=== PATIENT | male | born 1960 | race Caucasian/White ===

== ENCOUNTER → 2023-02-14 10:41 | Outpatient (BNVA) | payer OTHER, SELFPAY | PROVIDERS: Family Provider Family Medicine; PCP Family Medicine; Visit Provider Family Medicine | DX: R05.9 Cough, unspecified (principal); J40 Bronchitis, not specified as acute or chronic | CPT/HCPCS: 87426 ==

== ENCOUNTER → 2023-09-15 09:15 | Outpatient (BNVA) | payer OTHER, SELFPAY | PROVIDERS: Family Provider Family Medicine; PCP Family Medicine; Visit Provider Family Medicine | DX: Z76.89 Persons encountering health services in other specified circumstances (principal); Z11.4 Encounter for screening for human immunodeficiency virus [HIV]; Z13.220 Encounter for screening for lipoid disorders; Z13.6 Encounter for screening for cardiovascular disorders; Z11.59 Encounter for screening for other viral diseases; B36.9 Superficial mycosis, unspecified; H60.90 Unspecified otitis externa, unspecified ear; H62.40 Otitis externa in other diseases classified elsewhere, unspecified ear; E55.9 Vitamin D deficiency, unspecified; H61.23 Impacted cerumen, bilateral | CPT/HCPCS: 80053; 80061; 82306; 84443; 85025; 86803; 87806; G0103 ==

== ENCOUNTER 2024-08-23 11:35 | Observation (INO) | payer OTHER, SELFPAY ==
[2024-08-23] VITALS (8 sets, daily range): BP systolic 113–138; BP diastolic 70–107; PULSE 72–146; RESP 16–18; TEMP 36.4–37.1; O2SAT 92–99; BMI 27.1; BMI 26.9
--- NOTE | 2024-08-23 11:50 | ECG_ITS ---
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 Measurements Intervals [place] Rate: 151 P: 0 UT: 0 QRS: 66 QRSD: 74 T: 27 QT: 247 QTc: 392 Interpretive Statements ATRIAL FLUTTER/TACHYCARDIA WITH RAPID VENTRICULAR RESPONSE MODERATE ST DEPRESSION [0.05+ mV ST DEPRESSION] CRITICAL TEST RESULT INTERPRETATION BASED ON A DEFAULT AGE OF 40 YEARS No previous ECG available for comparison Electronically Signed On 08-25-2024 14:12:49 CDT by Cliff Cheng M.D. [email or web address]
--- NOTE | 2024-08-23 11:50 | XR_ITS ---
WS: [id number] XR chest 1V portable [id number] REASON FOR EXAM: palpitations FINDINGS: Mild tortuosity of the thoracic aorta. Normal heart size. Calcified granulomatous disease in both hemithoraces. No acute pulmonary parenchymal or pleural abnormality. Mild degenerative spondylosis in the mid and lower thoracic spine. XR/XR chest 1V portable [id number] IMPRESSION: No acute chest abnormality.
--- OUTSIDE RECORDS SUMMARY | 2024-08-23 11:55 | XMS_ITS | Encounter Summary ---
Author Organization [facility] Address 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 Name Role Phone Unavailable Primary Care Provider Unavailabl e Reason for Visit * Reason Onset Date Comments Needs Appointment 04/30/2024 Encounter Details Date Type Department Care Team (Late st Contact Info) Description 04/30/2024 Telephone [facility] [address] [facility] [address] [place] [address] Provider, Abstract NO ADDRESS ON FILE Needs Appointment Social History Tobacco Use Types Packs/Day Years Used Date Smoking Tobacco: Former Cigarettes Q uit: 08/14/1994 Smokeless Tobacco: Former Quit: 08/14/1994 Alcohol Use Standard Drinks/Week Comments No 0 (1 standard drink = 0.6 oz pur e alcohol) Sex and Gender Information Value Date Recorded Sex Assigned at Not on file 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 Paola Villegas [facility] Card[facility] documented in this encounter Plan of Treatment Upcoming Encounters Date Type Department Care Team (Late st Contact Info) Description 09/07/2024 9:30 AM CDT Appointment [facility] [address] [place] [address] Raghavendra Santiago MD [address] [facility] [address] [place] [address] documented as of this encounter Visit Diagnoses Not on filedocumented in this encounter
--- OUTSIDE RECORDS SUMMARY | 2024-08-23 11:55 | XMS_ITS | Clinical Summary ---
Author Organization [facility] Attn: Epic Prelude ADT KEV POWER [id number] Care Team Providers Care Striper Name Role Phone Unavailable Primary Care Provider Unavailabl e Allergies No known active allergies Medications cetirizine (ZyrTEC) 10 mg tablet Take 10 mg by mouth daily. Active ibuprofen (MOTRIN) 200 mg tablet Take 200 mg by mouth every 6 hours as needed for Pain, Mild. Active Active Problems No known active problems Encounters Date Type Department Care Team Description 07/04/2024 Results Follow-Up [address] [place] [phone] Raghavendra Santiago MD PET HEART PERF R&S W CT MULTI 07/03/2024 8:40 AM CDT - 07/03/2024 11:59 PM CDT Hospital Encounter [facility] Nuclear Medicine [address] [place] [phone] Raghavendra Santiago MD Discharge Disposition: Home or Self Care 07/03/2024 8:35 AM CDT - 07/03/2024 11:59 PM CDT Hospital Encounter [facility] Nuclear Medicine [address] [place] [phone] Raghavendra Santiago MD Discharge Disposition: Home or Self Care 07/03/2024 8:00 AM CDT - 07/03/2024 11:59 PM CDT Hospital Encounter [facility] Nuclear Medicine [address] [place] [phone] Raghavendra Santiago MD Discharge Disposition: Home or Self Care 07/03/2024 7:59 AM CDT - 07/03/2024 11:59 PM CDT Hospital Encounter [address] [phone] Raghavendra Santiago MD Discharge Disposition: Home or Self Care 06/28/[address] [phone] Hamida Garcia RN Pet scan instructions 05/31/2024 1:15 PM CDT Office Visit [address] [place] [phone] Raghavendra Santiago MD Chest pain, unspecified type (Primary Dx); Non-sustained ventricular tachycardia (CMS/HCC); Supraventricular tachycardia 05/31/2024 Orders Only [address] [place] [phone] Raghavendra Santiago MD Chest pain, unspecified type (Primary Dx); Non-sustained ventricular tachycardia (CMS/HCC); Supraventricular tachycardia from Last 3 Months Immunizations Immunization Administration Dates Next Due Hepatitis A Vaccine 04/22/2005,11/07/2004,2004 Hepatitis B Vaccine 04/22/2005 Family History Medical History Relation Name Comments Heart Disease Father Colon Cancer Maternal Grandfather Healthy Mother Relation Name Status Comments Father Alive Maternal Grandfather Mother Alive Social History Tobacco Use Types Packs/Day Years Used Date Smoking Tobacco: Former Cigarettes Q uit: 08/14/1994 Smokeless Tobacco: Former Quit: 08/14/1994 Tobacco Cessation:Counseling Given: Not Answered Alcohol Use Standard Drinks/Week Comments No 0 (1 standard drink = 0.6 oz pur e alcohol) Sex and Gender Information Value Date Recorded Sex Assigned at Not on file Legal Sex Male 11:54 AM [employer] Gender Identity Not on file Sexual Orientation Not on file Last Filed Vital Signs Vital Sign Reading Time Taken Comments Blood Pressure 118/76 05/31/2024 1:09 PM CDT Pulse 105 05/31/2024 1:09 PM CDT Temperature - - Respiratory Rate - - Oxygen Saturation - - Inhaled Oxygen Concentration - - Weight - - Height 182.9 cm (6') 05/31/2024 1:09 PM CDT Body Mass Index - - Plan of Treatment Upcoming Encounters Date Type Department Care Team (Late st Contact Info) Description 09/07/2024 9:30 AM CDT Appointment [facility] Echo [address] [place] [phone] Raghavendra Santiago MD [address] [place] [phone] Health Maintenance Due Date Last Done Comments DTAP/TDAP/TD VACCINES (1 - Tdap) 01/29/1979 FIT-DNA Q 3 years 01/29/2005 FIT/FOBT Q 1 year 01/29/2005 Flex Sig/CT Colonography Q 5 years 01/29/2005 ZOSTER VACCINE (1 of 2) 01/29/2010 COLORECTAL SCREENING 08/17/2018 08/17/2013, 08/18/19 14 Colorectal Cancer Screening 08/17/2018 Preventative Visit- Commercial 02/08/2024 INFLUENZA VACCINE (#1) 2024 RSV VACCINE (60+ or ) (1 - 1-dose 75+ series) 01/29/2035 Procedures Procedure Name Priority Date/Time Associated Diagnosis Comments PET HEART PERF R&S W CT MULTI Routine 07/03/2024 9:17 AM CDT Chest pain, unspecified type Non-sustained ventricular tachycardia (CMS/HCC) Supraventricular tachycardia NM PHARMACOLOGICAL STRESS TEST Routine 07/03/2024 9:04 AM CDT Chest pain CT CORONARY CALCIUM SCORE Routine 07/03/2024 8:49 AM CDT Chest pain in adult CT CARDIAC CHEST INTERPRETATION Routine 07/03/2024 8:49 AM CDT Chest pain in adult from Last 3 Months Results * PET HEART PERF R&S W CT MULTI (07/03/2024 9:17 AM CDT) 07/03/2024 9:38 AM CDT Impressions INTERFACE SYSTEM - 07/03/2024 2:42 PM CDT Impression: 1. Normal myocardial perfusion at rest and stress, without evidence of ischemia or injury. 2. Normal myocardial blood flow reserve (MBFR) at 2.46. 3. Normal left ventricular systolic function, LVEF at rest is 68%, rising to 74% at peak stress. 4. Coronary artery calcium scan shows coronary calcium score of 137. 5. No prior study available for direct comparison. Luca Solis MD Narrative INTERFACE SYSTEM - 07/03/2024 2:42 PM CDT REST-STRESS REGADENOSON RUBIDIUM-92 PET/CT MYOCARDIAL PERFUSION IMAGING Clinical Indication and History: Chest pain. 64-year-old male patient with history of palpitations, history of tobacco use and family history of CAD. Procedure: A CT scan was required for attenuation correction of the rest images. This was followed by infusion of 30 mCi of rubidium Rb-82, after which rest images were acquired. Following rest imaging, a total of 0.4 mg was injected intravenously over 10 seconds followed by a 5 ml normal saline flush. At 1 minute, 30 mCi of rubidium Rb-92 was infused. Peak stress images acquired, starting 30 seconds after the beginning of the infusion of Rb-92. A CT scan was acquired for attention correction of the stress images. A coronary calcium score is acquired with 3 mm thick slices using a 3 mm slice of slice step. Calcium score protocol (performed if no prior CAD or calcium score): high resolution, ECG synchronized completed tomography of the heart and corner artist was performed using a multi detector computer tomography MDCT scanner. Clinical response: The heart rate at rest was 70 beats per minute. After the regadenoson injection, the heart rate was 111 beats per minute. The blood pressure at baseline was 132/87 mm Hg. At the end of regadenoson injection, it was 117/68 mm Hg. The patient experienced the following symptoms during the test: Shortness of breath, headache and flushing. Electrocardiograph findings: The resting 12-lead electrocardiogram showed normal sinus rhythm, without ST-segment changes . Following regadenoson stress, no significant ST-T changes were noted. There was evidence of no significant new arrhythmias. Scintigraphic findings: The tomographic images show homogeneous tracer distribution and myocardial perfusion except mild attenuation in the inferior and inferoseptal myocardium more prominent in the resting images. There is also attenuation in the apical myocardium. The left ventricle does not dilate with stress. The gated tomograms show normal wall motion and thickening in all areas. The LVEF at rest is 68%, rising to 74% at peak stress. Myocardial blood flow reserve: Myocardial blood flow reserve is normal at 2.46. Myocardial blood flow reserve is 2.6 in the LAD territory and 2.2 in the circumflex territory and 2.4 in the RCA territory Coronary artery calcium score: The total Agatston score is 137. Calcification is noted in the LAD and the RCA In summary, the clinical, electrocardiographic and scintigraphic findings in this patient being evaluated for ischemia using regadenoson are as follows: Clinical response: Non-diagnostic (Regadenoson). Electrocardiographic response: Non-ischemic Scintigraphic response: Non-ischemic Procedure Note Luca Solis MD - 07/03/2024 REST-STRESS REGADENOSON RUBIDIUM-92 PET/CT MYOCARDIAL PERFUSION IMAGING Clinical Indication and History: Chest pain. 64-year-old male patient with history of palpitations, history of tobacco use and family history of CAD. Procedure: A CT scan was required for attenuation correction of the rest images. This was followed by infusion of 30 mCi of rubidium Rb-82, after which rest images were acquired. Following rest imaging, a total of 0.4 mg was injected intravenously over 10 seconds followed by a 5 ml normal saline flush. At 1 minute, 30 mCi of rubidium Rb-92 was infused. Peak stress images acquired, starting 30 seconds after the beginning of the infusion of Rb-92. A CT scan was acquired for attention correction of the stress images. A coronary calcium score is acquired with 3 mm thick slices using a 3 mm slice of slice step. Calcium score protocol (performed if no prior CAD or calcium score): high resolution, ECG synchronized completed tomography of the heart and corner artist was performed using a multi detector computer tomography MDCT scanner. Clinical response: The heart rate at rest was 70 beats per minute. After the regadenoson injection, the heart rate was 111 beats per minute. The blood pressure at baseline was 132/87 mm Hg. At the end of regadenoson injection, it was 117/68 mm Hg. The patient experienced the following symptoms during the test: Shortness of breath, headache and flushing. Electrocardiograph findings: The resting 12-lead electrocardiogram showed normal sinus rhythm, without ST-segment changes . Following regadenoson stress, no significant ST-T changes were noted. There was evidence of no significant new arrhythmias. Scintigraphic findings: The tomographic images show homogeneous tracer distribution and myocardial perfusion except mild attenuation in the inferior and inferoseptal myocardium more prominent in the resting images. There is also attenuation in the apical myocardium. The left ventricle does not dilate with stress. The gated tomograms show normal wall motion and thickening in all areas. The LVEF at rest is 68%, rising to 74% at peak stress. Myocardial blood flow reserve: Myocardial blood flow reserve is normal at 2.46. Myocardial blood flow reserve is 2.6 in the LAD territory and 2.2 in the circumflex territory and 2.4 in the RCA territory Coronary artery calcium score: The total Agatston score is 137. Calcification is noted in the LAD and the RCA In summary, the clinical, electrocardiographic and scintigraphic findings in this patient being evaluated for ischemia using regadenoson are as follows: Clinical response: Non-diagnostic (Regadenoson). Electrocardiographic response: Non-ischemic Scintigraphic response: Non-ischemic Impression: 1. Normal myocardial perfusion at rest and stress, without evidence of ischemia or injury. 2. Normal myocardial blood flow reserve (MBFR) at 2.46. 3. Normal left ventricular systolic function, LVEF at rest is 68%, rising to 74% at peak stress. 4. Coronary artery calcium scan shows coronary calcium score of 137. 5. No prior study available for direct comparison. Luca Solis MD Raghavendra Santiago MD PE ORDERABLES Final Result INTERFACE SYSTEM Refer to clinic/hospital department * NM PHARMACOLOGICAL STRESS TEST (07/03/2024 9:04 AM CDT) 07/03/2024 9:05 AM CDT Impressions INTERFACE SYSTEM - 07/03/2024 2:42 PM CDT Impression: 1. Normal myocardial perfusion at rest and stress, without evidence of ischemia or injury. 2. Normal myocardial blood flow reserve (MBFR) at 2.46. 3. Normal left ventricular systolic function, LVEF at rest is 68%, rising to 74% at peak stress. 4. Coronary artery calcium scan shows coronary calcium score of 137. 5. No prior study available for direct comparison. Luca Solis MD Narrative INTERFACE SYSTEM - 07/03/2024 2:42 PM CDT REST-STRESS REGADENOSON RUBIDIUM-92 PET/CT MYOCARDIAL PERFUSION IMAGING Clinical Indication and History: Chest pain. 64-year-old male patient with history of palpitations, history of tobacco use and family history of CAD. Procedure: A CT scan was required for attenuation correction of the rest images. This was followed by infusion of 30 mCi of rubidium Rb-82, after which rest images were acquired. Following rest imaging, a total of 0.4 mg was injected intravenously over 10 seconds followed by a 5 ml normal saline flush. At 1 minute, 30 mCi of rubidium Rb-92 was infused. Peak stress images acquired, starting 30 seconds after the beginning of the infusion of Rb-92. A CT scan was acquired for attention correction of the stress images. A coronary calcium score is acquired with 3 mm thick slices using a 3 mm slice of slice step. Calcium score protocol (performed if no prior CAD or calcium score): high resolution, ECG synchronized completed tomography of the heart and corner artist was performed using a multi detector computer tomography MDCT scanner. Clinical response: The heart rate at rest was 70 beats per minute. After the regadenoson injection, the heart rate was 111 beats per minute. The blood pressure at baseline was 132/87 mm Hg. At the end of regadenoson injection, it was 117/68 mm Hg. The patient experienced the following symptoms during the test: Shortness of breath, headache and flushing. Electrocardiograph findings: The resting 12-lead electrocardiogram showed normal sinus rhythm, without ST-segment changes . Following regadenoson stress, no significant ST-T changes were noted. There was evidence of no significant new arrhythmias. Scintigraphic findings: The tomographic images show homogeneous tracer distribution and myocardial perfusion except mild attenuation in the inferior and inferoseptal myocardium more prominent in the resting images. There is also attenuation in the apical myocardium. The left ventricle does not dilate with stress. The gated tomograms show normal wall motion and thickening in all areas. The LVEF at rest is 68%, rising to 74% at peak stress. Myocardial blood flow reserve: Myocardial blood flow reserve is normal at 2.46. Myocardial blood flow reserve is 2.6 in the LAD territory and 2.2 in the circumflex territory and 2.4 in the RCA territory Coronary artery calcium score: The total Agatston score is 137. Calcification is noted in the LAD and the RCA In summary, the clinical, electrocardiographic and scintigraphic findings in this patient being evaluated for ischemia using regadenoson are as follows: Clinical response: Non-diagnostic (Regadenoson). Electrocardiographic response: Non-ischemic Scintigraphic response: Non-ischemic Procedure Note Luca Solis MD - 07/03/2024 REST-STRESS REGADENOSON RUBIDIUM-92 PET/CT MYOCARDIAL PERFUSION IMAGING Clinical Indication and History: Chest pain. 64-year-old male patient with history of palpitations, history of tobacco use and family history of CAD. Procedure: A CT scan was required for attenuation correction of the rest images. This was followed by infusion of 30 mCi of rubidium Rb-82, after which rest images were acquired. Following rest imaging, a total of 0.4 mg was injected intravenously over 10 seconds followed by a 5 ml normal saline flush. At 1 minute, 30 mCi of rubidium Rb-92 was infused. Peak stress images acquired, starting 30 seconds after the beginning of the infusion of Rb-92. A CT scan was acquired for attention correction of the stress images. A coronary calcium score is acquired with 3 mm thick slices using a 3 mm slice of slice step. Calcium score protocol (performed if no prior CAD or calcium score): high resolution, ECG synchronized completed tomography of the heart and corner artist was performed using a multi detector computer tomography MDCT scanner. Clinical response: The heart rate at rest was 70 beats per minute. After the regadenoson injection, the heart rate was 111 beats per minute. The blood pressure at baseline was 132/87 mm Hg. At the end of regadenoson injection, it was 117/68 mm Hg. The patient experienced the following symptoms during the test: Shortness of breath, headache and flushing. Electrocardiograph findings: The resting 12-lead electrocardiogram showed normal sinus rhythm, without ST-segment changes . Following regadenoson stress, no significant ST-T changes were noted. There was evidence of no significant new arrhythmias. Scintigraphic findings: The tomographic images show homogeneous tracer distribution and myocardial perfusion except mild attenuation in the inferior and inferoseptal myocardium more prominent in the resting images. There is also attenuation in the apical myocardium. The left ventricle does not dilate with stress. The gated tomograms show normal wall motion and thickening in all areas. The LVEF at rest is 68%, rising to 74% at peak stress. Myocardial blood flow reserve: Myocardial blood flow reserve is normal at 2.46. Myocardial blood flow reserve is 2.6 in the LAD territory and 2.2 in the circumflex territory and 2.4 in the RCA territory Coronary artery calcium score: The total Agatston score is 137. Calcification is noted in the LAD and the RCA In summary, the clinical, electrocardiographic and scintigraphic findings in this patient being evaluated for ischemia using regadenoson are as follows: Clinical response: Non-diagnostic (Regadenoson). Electrocardiographic response: Non-ischemic Scintigraphic response: Non-ischemic Impression: 1. Normal myocardial perfusion at rest and stress, without evidence of ischemia or injury. 2. Normal myocardial blood flow reserve (MBFR) at 2.46. 3. Normal left ventricular systolic function, LVEF at rest is 68%, rising to 74% at peak stress. 4. Coronary artery calcium scan shows coronary calcium score of 137. 5. No prior study available for direct comparison. Luca Solis MD Raghavendra Santiago MD ID ORDERABLES Final Result INTERFACE SYSTEM Refer to clinic/hospital department * CT CORONARY CALCIUM SCORE (07/03/2024 8:49 AM CDT) 07/03/2024 8:49 AM CDT Impressions INTERFACE SYSTEM - 07/03/2024 2:42 PM CDT Impression: 1. Normal myocardial perfusion at rest and stress, without evidence of ischemia or injury. 2. Normal myocardial blood flow reserve (MBFR) at 2.46. 3. Normal left ventricular systolic function, LVEF at rest is 68%, rising to 74% at peak stress. 4. Coronary artery calcium scan shows coronary calcium score of 137. 5. No prior study available for direct comparison. Luca Solis MD Narrative INTERFACE SYSTEM - 07/03/2024 2:42 PM CDT REST-STRESS REGADENOSON RUBIDIUM-92 PET/CT MYOCARDIAL PERFUSION IMAGING Clinical Indication and History: Chest pain. 64-year-old male patient with history of palpitations, history of tobacco use and family history of CAD. Procedure: A CT scan was required for attenuation correction of the rest images. This was followed by infusion of 30 mCi of rubidium Rb-82, after which rest images were acquired. Following rest imaging, a total of 0.4 mg was injected intravenously over 10 seconds followed by a 5 ml normal saline flush. At 1 minute, 30 mCi of rubidium Rb-92 was infused. Peak stress images acquired, starting 30 seconds after the beginning of the infusion of Rb-92. A CT scan was acquired for attention correction of the stress images. A coronary calcium score is acquired with 3 mm thick slices using a 3 mm slice of slice step. Calcium score protocol (performed if no prior CAD or calcium score): high resolution, ECG synchronized completed tomography of the heart and corner artist was performed using a multi detector computer tomography MDCT scanner. Clinical response: The heart rate at rest was 70 beats per minute. After the regadenoson injection, the heart rate was 111 beats per minute. The blood pressure at baseline was 132/87 mm Hg. At the end of regadenoson injection, it was 117/68 mm Hg. The patient experienced the following symptoms during the test: Shortness of breath, headache and flushing. Electrocardiograph findings: The resting 12-lead electrocardiogram showed normal sinus rhythm, without ST-segment changes . Following regadenoson stress, no significant ST-T changes were noted. There was evidence of no significant new arrhythmias. Scintigraphic findings: The tomographic images show homogeneous tracer distribution and myocardial perfusion except mild attenuation in the inferior and inferoseptal myocardium more prominent in the resting images. There is also attenuation in the apical myocardium. The left ventricle does not dilate with stress. The gated tomograms show normal wall motion and thickening in all areas. The LVEF at rest is 68%, rising to 74% at peak stress. Myocardial blood flow reserve: Myocardial blood flow reserve is normal at 2.46. Myocardial blood flow reserve is 2.6 in the LAD territory and 2.2 in the circumflex territory and 2.4 in the RCA territory Coronary artery calcium score: The total Agatston score is 137. Calcification is noted in the LAD and the RCA In summary, the clinical, electrocardiographic and scintigraphic findings in this patient being evaluated for ischemia using regadenoson are as follows: Clinical response: Non-diagnostic (Regadenoson). Electrocardiographic response: Non-ischemic Scintigraphic response: Non-ischemic Procedure Note Luca Solis MD - 07/03/2024 REST-STRESS REGADENOSON RUBIDIUM-92 PET/CT MYOCARDIAL PERFUSION IMAGING Clinical Indication and History: Chest pain. 64-year-old male patient with history of palpitations, history of tobacco use and family history of CAD. Procedure: A CT scan was required for attenuation correction of the rest images. This was followed by infusion of 30 mCi of rubidium Rb-82, after which rest images were acquired. Following rest imaging, a total of 0.4 mg was injected intravenously over 10 seconds followed by a 5 ml normal saline flush. At 1 minute, 30 mCi of rubidium Rb-92 was infused. Peak stress images acquired, starting 30 seconds after the beginning of the infusion of Rb-92. A CT scan was acquired for attention correction of the stress images. A coronary calcium score is acquired with 3 mm thick slices using a 3 mm slice of slice step. Calcium score protocol (performed if no prior CAD or calcium score): high resolution, ECG synchronized completed tomography of the heart and corner artist was performed using a multi detector computer tomography MDCT scanner. Clinical response: The heart rate at rest was 70 beats per minute. After the regadenoson injection, the heart rate was 111 beats per minute. The blood pressure at baseline was 132/87 mm Hg. At the end of regadenoson injection, it was 117/68 mm Hg. The patient experienced the following symptoms during the test: Shortness of breath, headache and flushing. Electrocardiograph findings: The resting 12-lead electrocardiogram showed normal sinus rhythm, without ST-segment changes . Following regadenoson stress, no significant ST-T changes were noted. There was evidence of no significant new arrhythmias. Scintigraphic findings: The tomographic images show homogeneous tracer distribution and myocardial perfusion except mild attenuation in the inferior and inferoseptal myocardium more prominent in the resting images. There is also attenuation in the apical myocardium. The left ventricle does not dilate with stress. The gated tomograms show normal wall motion and thickening in all areas. The LVEF at rest is 68%, rising to 74% at peak stress. Myocardial blood flow reserve: Myocardial blood flow reserve is normal at 2.46. Myocardial blood flow reserve is 2.6 in the LAD territory and 2.2 in the circumflex territory and 2.4 in the RCA territory Coronary artery calcium score: The total Agatston score is 137. Calcification is noted in the LAD and the RCA In summary, the clinical, electrocardiographic and scintigraphic findings in this patient being evaluated for ischemia using regadenoson are as follows: Clinical response: Non-diagnostic (Regadenoson). Electrocardiographic response: Non-ischemic Scintigraphic response: Non-ischemic Impression: 1. Normal myocardial perfusion at rest and stress, without evidence of ischemia or injury. 2. Normal myocardial blood flow reserve (MBFR) at 2.46. 3. Normal left ventricular systolic function, LVEF at rest is 68%, rising to 74% at peak stress. 4. Coronary artery calcium scan shows coronary calcium score of 137. 5. No prior study available for direct comparison. Luca Solis MD Raghavendra Santiago MD CT ORDERABLES Final Result Performing Organization Address City/State/[facility] Co de Phone Number INTERFACE SYSTEM Refer to clinic/hospital department * CT CARDIAC CHEST INTERPRETATION (07/03/2024 8:49 AM CDT) Anatomical Region Laterality Modality Chest Nuclear Medicine 07/03/2024 8:4 9 AM CDT Impressions 07/03/2024 9:06 AM CDT IMPRESSION: No significant extracardiac findings. Narrative 07/03/2024 9:[address] CARDIAC CHEST INTERPRETATION; 07/03/2024 8:49 AM Reason For Exam: See Diagnosis. Diagnosis: Chest pain in adult. COMPARISON: None. This report serves as an over read of the extracardiac/extravascular structures in the visualized portions of the chest. Please refer to the concurrent cardiology report for assessment of the cardiac structures and great vessels of the chest. FINDINGS: LUNGS: The visualized portions of the lungs appear grossly clear with no dominant nodules or acute airspace consolidation. PLEURA: No pneumothorax or pleural effusion. MEDIASTINUM: No pathologically enlarged mediastinal lymph nodes. GREAT VESSELS: Reported by cardiology, as above. HEART: Reported by cardiology, as above. OSSEOUS STRUCTURES: The visualized skeletal structures are intact. UPPER ABDOMEN: No acute abnormalities. Procedure Note Chai Berry MD - 07/03/2024 CT CARDIAC CHEST INTERPRETATION; 07/03/2024 8:49 AM Reason For Exam: See Diagnosis. Diagnosis: Chest pain in adult. COMPARISON: None. This report serves as an over read of the extracardiac/extravascular structures in the visualized portions of the chest. Please refer to the concurrent cardiology report for assessment of the cardiac structures and great vessels of the chest. FINDINGS: LUNGS: The visualized portions of the lungs appear grossly clear with no dominant nodules or acute airspace consolidation. PLEURA: No pneumothorax or pleural effusion. MEDIASTINUM: No pathologically enlarged mediastinal lymph nodes. GREAT VESSELS: Reported by cardiology, as above. HEART: Reported by cardiology, as above. OSSEOUS STRUCTURES: The visualized skeletal structures are intact. UPPER ABDOMEN: No acute abnormalities. IMPRESSION: No significant extracardiac findings. Raghavendra Santiago MD CT ORDERABLES Final Result from Last 3 Months Insurance [facility] [id number]
--- OUTSIDE RECORDS SUMMARY | 2024-08-23 11:55 | XMS_ITS | Encounter Summary ---
Author Organization [facility] Address [address] [place] [address] Care Team Providers Care Test Bore Helper Name Role Phone Unavailable Primary Care Provider Unavailabl e Reason for Visit * Reason Onset Date Comments Results 07/04/2024 Encounter Details Date Type Department Care Team (Late st Contact Info) Description 07/04/2024 Results Follow-Up [facility] [address] [facility] [address] [place] [id number] Raghavendra Santiago MD [address] [facility] [address] [place] [id number] PET HEART PERF R&S W CT MULTI Social History Tobacco Use Types Packs/Day Years Used Date Smoking Tobacco: Former Cigarettes Q uit: 08/14/1994 Smokeless Tobacco: Former Quit: 08/14/1994 Alcohol Use Standard Drinks/Week Comments No 0 (1 standard drink = 0.6 oz pur e alcohol) Sex and Gender Information Value Date Recorded Sex Assigned at Not on file 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 Advised could call back tomorrow am. * Telephone Encounter - Shazia Pickett RN - 07/05/2024 4:06 PM CDT ----- Message from Fawn Cheng sent at 07/05/2024 11:54 AM CDT ----- Can you call Faustina to discuss Dakotah's v-tach and future episodes? She's pretty worried about it. * Telephone Encounter - Fawn Cheng - 07/05/2024 11:52 AM CDT I talked to the pt's about the results. I told her to call and get the echo scheduled. She said she is still concerned about his V-tach. I told her I will send a message to the nurse to discuss this further. MARIAH SPRINGER * Telephone Encounter - Fawn Cheng - 07/05/2024 11:46 AM CDT ----- Message from Nurse Shazia Pickett sent at 07/04/2024 3:10 PM CDT ----- Please call and notify the patient Shazia ----- Message ----- From: Raghavendra Santiago MD Sent: 07/04/2024 6:53 AM CDT To: Shazia Pickett RN Cardiac nuclear PET/CT is normal No ischemia. Normal myocardial blood flow reserve Normal LV function, EF 68% Calcium score is 137 This scan shows no evidence of significant underlying CAD, no prior TN or heart damage. Await echo results. * Result Encounter Note - Raghavendra Santiago MD - 07/04/2024 6:53 AM CDT Cardiac nuclear PET/CT is normal No ischemia. Normal myocardial blood flow reserve Normal LV function, EF 68% Calcium score is 137 This scan shows no evidence of significant underlying CAD, no prior TN or heart damage. Await echo results. documented in this encounter Plan of Treatment Upcoming Encounters Date Type Department Care Team (Late st Contact Info) Description 09/07/2024 9:30 AM CDT Appointment [facility] Echo [address] [place] [address] Raghavendra Santiago MD [address] [facility] [address] [place] [address] documented as of this encounter Visit Diagnoses Not on filedocumented in this encounter
[2024-08-23 12:10] LABS: Hematocrit 49.7 % (37-53); Hemoglobin 16.30 g/dL (11.27-16.99); Mean Corpuscular HGB Conc 32.8 g/dL (30-55); Mean Corpuscular Hemoglobin 29.9 pg (27-33); Mean Corpuscular Volume 91.0 fl (82-101); Nucleated Red Blood Cells % 0 %; Platelet Count 240 10^3/cmm (157-399); Red Blood Count 5.46 10^6/uL (3.85-5.65); White Blood Count 5.60 10^3/uL (3.29-11.43)
[2024-08-23 12:37] LABS: Troponin(5th) Baseline < 6 ng/L (0-15)
[2024-08-23 12:37] LABS: Glucose Urine UA Negative (Normal); Nitrate Urine Negative (Negative); Specific Gravity, Urine 1.004 (1.005-1.030)
--- NOTE | 2024-08-23 12:39 | ED_ITS ---
HPI - Arrhythmia/Palpitations 2 General: Chief Complaint: Arrhythmia/Palpitations Stated Complaint: high HR Time Seen by Provider: 08/23/24 11:49 History of Present Illness: This is a healthy 64-year-old man who presents emergency room with chest tightness and palpitations. On presentation his heart rate is almost 150. He has been feeling short of breath. This all started today. He says at 1 point he did have a bench chemist that showed some brief episodes of what he was told was SVT. Otherwise he is never been diagnosed with hypertension, diabetes or atrial fibrillation or any other medical problems. He is had no fever. No cough. No abdominal pain. No altered mental status. Related Data Home Medications ?Medication ?Instructions ?Recorded ?Confirmed cetirizine 10 mg tablet (24Hour 10 mg PO DAILY PRN all ergies 02/24/24 08/23/24 Allergy) ibuprofen 200 mg capsule 200 mg PO Q6H PRN Pain 02/2308/23/24 Allergies Allergy/AdvReac Type Severity Reaction Status Date / Time No Known Allergies Allergy Verified 02/24/24 09:42 Review of Systems 2 Narrative: Constitutional symptoms: Negative except as documented in HPI. Skin symptoms: Negative except as documented in HPI. Eye symptoms: Negative except as documented in HPI. ENMT symptoms: Negative except as documented in HPI. Respiratory symptoms: Negative except as documented in HPI. Cardiovascular symptoms: Negative except as documented in HPI. Gastrointestinal symptoms: Negative except as documented in HPI. Genitourinary symptoms: Negative except as documented in HPI. Musculoskeletal symptoms: Negative except as documented in HPI. Neurologic symptoms: Negative except as documented in HPI. Psychiatric symptoms: Negative except as documented in HPI. Endocrine symptoms: Negative except as documented in HPI. PFSH ED 2 PFSH: Medical History (Updated 08/23/24 @ 13:19 by Melly Mccauley MD) No significant active problems Surgical History No significant past surgical history Family History Father Diabetes Heart disease Grandfather Colon cancer Other Cancer Social History Smoking and tobacco/nicotine status: former use of tobacco/nicotine Second hand smoke exposure: No Alcohol intake: never Substance/Drug Use: never Adopted: No Caregiver/support person: No Lives independently: Yes Physical Exam 2 Narrative: EXAM NARRATIVE: General: Alert, no acute distress. Skin: Warm, dry. Head: Normocephalic, atraumatic. Neck: Supple, trachea midline. Eye: Extraocular movements are intact. Ears, nose, mouth and throat: mucosa moist. Cardiovascular: Tachycardic, Normal peripheral perfusion. Respiratory: Lungs are clear to auscultation, respirations are non-labored, breath sounds are equal, Symmetrical chest wall expansion. Gastrointestinal: Soft, Nontender, Non distended Musculoskeletal: Normal ROM, no deformity. Neurological: Alert and oriented, No focal neurological deficit observed. Psychiatric: Cooperative, appropriate mood & affect. Course 2 Vital Signs: Vital signs: Vital Signs Temperature 98.7 F 08/23/24 11:54 Pulse Rate 117 H 08/23/24 13:01 Respiratory Rate 17 08/23/24 11:54 Blood Pressure 113/85 08/23/24 13:01 Pulse Oximetry 92 08/23/24 13:01 Oxygen Delivery Me thod Room Air 08/23/24 13:01 MDM - Arrhythmia/Palpitations Medical Decision Making Medical decision making: Differential diagnosis including but not limited to and based on the above HPI, review of systems and physical exam: for patient with palpitations: atrial fibrillation with rapid ventricular response. ventricular tachycardia. sinus tachycardia. PVCs. also concern for underlying issues causing tachycardia. Infection, electrolyte abnormalities and thyroid issues. Orders placed to evaluate differential diagnosis based on the above differential, HPI and physical exam EKG: Time 11:47 AM. Rate 151. Atrial fibrillation with rapid ventricular response, diffuse ST depression, no ectopy, This was reviewed and interpreted by myself the ER physician at 11:50 AM. Chest x-ray: No acute process. No infiltrate. No pneumothorax. This was reviewed and interpreted by myself the emergency room physician. I also reviewed the radiology report. Lab Review: Laboratory results were reviewed and interpreted by myself the emergency room physician. No leukocytosis. No anemia. No renal failure. Magnesium and TSH are normal. Drug screen is negative. Urinalysis is negative for infection. So likely paroxysmal atrial fibrillation as there are no notable underlying causes. I reviewed the patient's medical record. Reexamination: Heart rate has come down to low 100s. Around 105-115. Patient was initiated on diltiazem. He has no increased work of breathing. No altered mental status. No focal motor deficits. Consultation: I spoke Dr. Metzger who is on-call for the hospitalist service who agrees to admission to the cardiac stepdown Assessment and plan: Atrial fibrillation with rapid ventricular response ?10 mg IV bolus diltiazem and then diltiazem drip -I discussed the patient with the hospitalist on-call who is admitting the patient. - Discussed findings and plan with patient. Answered any questions. - All laboratory values were reviewed and interpreted personally by myself, the ER physician - All imaging was reviewed and interpreted personally by myself, the ER physician. - Evaluation and treatment of this problem were appropriate in the emergency setting Lab Data 08/23/24 11:59 08/23/24 11:59 Radiology Impressions Chest X-Ray 08/23/24 11:50 IMPRESSION: No acute chest abnormality. Laboratory Results WBC 5.60 10^3/uL (3.29-11.43) 08/23/24 11:59 RBC 5.46 10^6/uL (3.85-5.65) 08/23/24 11:59 Hgb 16.30 g/dL (11.27-16.99) 08/23/24 11:59 Hct 49.7 % (37-53) 08/23/24 11:59 MCV 91.0 fl (82-101) 08/23/24 11:59 MCH 29.9 pg (27-33) 08/23/24 11:59 MCHC 32.8 g/dL (30-55) 08/23/24 11:59 RDW 12.6 % (12.1-15.1) 08/23/24 11:59 Plt Count 240 10^3/cmm (157-399) 08/23/24 11:59 MPV 10.0 fL (7.4-10.4) 08/23/24 11:59 Neut % (Auto) 46.9 % 08/23/24 11:59 Lymph % (Auto) 33.4 % 08/23/24 11:59 [place] % (Auto) 14.5 % 08/23/24 11:59 Eos % (Auto) 3.4 % 08/23/24 11:59 Baso % (Auto) 0.9 % 08/23/24 11:59 Neut # (Auto) 2.63 10^3/uL (1.8-7.7) 08/23/24 11:59 Lymph # (Auto) 1.9 10^3/uL (0.8-4.8) 08/23/24 11:59 [place] # (Auto) 0.8 10^3/uL (0.2-0.9) 08/23/24 11:59 Eos # (Auto) 0.2 10^3/uL (0.0-0.8) 08/23/24 11:59 Baso # (Auto) 0.1 10^3/uL (0.0-0.1) 08/23/24 11:59 Nucleated RBC % (auto) 0 % 08/23/24 11:59 Nucleated RBCs # 0.0 /100WBC 08/23/24 11:59 Sodium 138 mmol/L (136-145) 08/23/24 11:59 Potassium 4.5 mmol/L (3.5-5.1) 08/23/24 11:59 Chloride 103 mmol/L (98-107) 08/23/24 11:59 Carbon Dioxide 23 mmol/L (22-29) 08/23/24 11:59 Anion Gap 16.5 (5-19) 08/23/24 11:59 BUN 20 mg/dL (8-23) 08/23/24 11:59 Creatinine 1.0 mg/dL (0.7-1.2) 08/23/24 11:59 GFR Calculation 75.2 mL/min (90-130) L 08/23/24 11:59 Glucose 85 mg/dL (65-115) 08/23/24 11:59 Calculated Osmolality 288 mOsm/kg (285-295) 08/23/24 11:59 Calcium 9.6 mg/dL (8.5-10.5) 08/23/24 11:59 Magnesium 2.3 mg/dL (1.7-2.3) 08/23/24 11:59 Total Bilirubin 0.4 mg/dL (0.15-1.2) 08/23/24 11:59 AST 24 U/L (0-40) 08/23/24 11:59 ALT 28 U/L (0-41) 08/23/24 11:59 Alkaline Phosphatase 107 U/L (40-130) 08/23/24 11:59 Troponin T Baseline < 6 ng/L (0-15) 08/23/24 11:59 Total Protein 7.3 g/dL (6.6-8.7) 08/23/24 11:59 Albumin 4.4 g/dL (3.5-5.2) 08/23/24 11:59 Globulin 2.9 g/dL (1.3-4.6) 08/23/24 11:59 TSH 1.25 uIU/mL (0.27-4.20) 08/23/24 11:59 Urine Color Yellow (Yellow) 08/23/24 12:24 Urine Appearance Clear (CLEAR) 08/23/24 12:24 Urine pH 6.5 (5-7) 08/23/24 12:24 Ur Specific [place] 1.004 (1.005-1.030) L 08/23/24 12:24 Urine Protein Negative (Negative) 08/23/24 12:24 Urine Glucose (UA) Negative (Normal) 08/23/24 12:24 Urine Ketones Negative (Negative) 08/23/24 12:24 Urine Blood Negative (Negative) 08/23/24 12:24 Urine Nitrate Negative (Negative) 08/23/24 12:24 Urine Bilirubin Negative (Negative) 08/23/24 12:24 Urine Urobilinogen 0.2 mg/dL (Negative) 08/23/24 12:24 Ur Leukocyte Esterase Negative (Negative) 08/23/24 12:24 Urine RBC 0-2 /hpf (0-2) 08/23/24 12:24 Urine WBC 0-5 /hpf (0-5) 08/23/24 12:24 Ur Squamous Epith Cells 0-5 /hpf (0-5) 08/23/24 12:24 Amorphous Sediment Not Reportable 08/23/24 12:24 Urine Bacteria None seen /hpf (NONE) 08/23/24 12:24 Hyaline Casts 0-4 /lpf H 08/23/24 12:24 Urine Opiates Screen Negative ng/mL (Negative) 08/23/24 12:24 Ur Barbiturates Screen Negative ng/mL (Negative) 08/23/24 12:24 Ur Phencyclidine Scrn Negative ng/mL (Negative) 08/23/24 12:24 Ur Amphetamines Screen Negative ng/mL (Negative) 08/23/24 12:24 U Benzodiazepines Scrn Negative ng/mL (Negative) 08/23/24 12:24 Urine Cocaine Screen Negative ng/mL (Negative) 08/23/24 12:24 U Marijuana (THC) Screen Negative ng/mL (Negative) 08/23/24 12:24 All radiology interpretation(s) finalized by discharge Discharge Plan Discharge Patient Disposition: Admitted As Inpatient Admit Provider: Jigar Metzger Clinical Impression: Atrial fibrillation with rapid ventricular response, Chest pain Condition: Stable Coding Level of Care Code ED Security Project Manager for Aneta Musa
[2024-08-23 12:43] LABS: PCP Screen Urine Negative (Negative)
[2024-08-23 12:44] LABS: Alanine Aminotransferase 28 U/L (0-41); Albumin Level 4.4 g/dL (3.5-5.2); Alkaline Phosphatase 107 U/L (40-130); Aspartate Amino Transferase 24 U/L (0-40); Blood Urea Nitrogen 20 mg/dL (8-23); Calcium 9.6 mg/dL (8.5-10.5); Carbon Dioxide 23 mmol/L (22-29); Chloride 103 mmol/L (98-107); Creatinine Clr Calc Pharmacy 87.4498; Globulin 2.9 g/dL (1.3-4.6); Glucose 85 mg/dL (65-115); Magnesium 2.3 mg/dL (1.7-2.3); Osmolality Calculated 288 mOsm/kg (285-295); Sodium 138 mmol/L (136-145); Thyroid Stimulating Hormone 1.25 uIU/mL (0.27-4.20); Total Protein 7.3 g/dL (6.6-8.7)
[2024-08-23 12:46] LABS: Anion Gap 16.5 (5-19); Potassium 4.5 mmol/L (3.5-5.1)
[2024-08-23] MEDS: dilTIAZem 5 mg/mL SDV 5 mL 10 MG IVP (12:53)
[2024-08-23] MEDS: dilTIAZem 100 MG in sodium chloride 0.9% (add-van) 100 ML IV (13:00)
--- NOTE | 2024-08-23 13:50 | ECG_ITS ---
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: : 1960 Requested By: Melly Glasgow Order Number: [id number] Joy MD: EVETTE HAWK Measurements Intervals [place] Rate: 66 P: 46 WV: 180 QRS: 37 QRSD: 112 T: 18 QT: 349 QTc: 368 Interpretive Statements SINUS RHYTHM WITH SINUS ARRHYTHMIA MODERATE INTRAVENTRICULAR CONDUCTION DELAY [110+ ms QRS DURATION] Compared to ECG 08/23/2024 11:47:51 Intraventricular conduction delay now present Atrial flutter no longer present ST (T wave) deviation no longer present Electronically Signed On 08-25-2024 16:12:06 CDT by EVETTE HAWK [email or web address]
[2024-08-23 14:21] LABS: Troponin 5 2HR < 6.0 ng/L (0-15); Troponin 5 2HR Delta 0 ABS# (0-10)
--- NOTE | 2024-08-23 15:42 | P.HP_ITS ---
Providers/Chief Complaint 2 Admitting Physician: Jigar Metzger MD Primary Care Provider: José Black DO Chief Complaint: high HR History of Present Illness Dakotah Mcgee is a 64 year old male comes in with chest palpitations and chest pain 3/10 resolved after heart rate was controlled. He states that he did not really have chest pain by the time he got to the hospital. Patient was given diltiazem 10 mg in the emergency department for A-fib with heart rate of 150. He was started on a drip. He states that he had a similar episode with palpitations hypertension evaluated by his RN Faustina. She also thinks he stops breathing for a few seconds at a time and snores heavy. It is enough to make her sleep in the other room to get sleep. As a result the patient saw Dr. Santiago smocking machine operator in [place] and had a Holter monitor which showed nonsustained V. tach runs and he had a PET scan of his heart. He is scheduled to have an echocardiogram on September 07 Patient has never had an NC but he does have positive family history for coronary artery disease. He states he does not have diabetes nor hyperlipidemia. Quit smoking 35 years ago after pack per day for 20 years Family history dad of coronary artery disease with an NC at age 82 but started heart disease at age 65 mom has coronary artery disease and is age 84 and living brother is okay paternal uncle has irregular heartbeat possibly A-fib patient has no sisters he has 2 kids that are okay Review of Systems 2 Narrative: General No fevers chills night sweats hot flashes weight gain or weight loss Cardiovascular positive for chest pain and palpitations today but typically not with exertion denies leg edema Respiratory no shortness of breath cough wheezing GI no nausea vomiting diarrhea constipation melena hematochezia no dysuria hematuria he does have nocturia without hesitancy denies impotence Neuro no seizures strokes limb weakness Hematologic no clotting in the legs or lungs Malignancy history negative Medications/Allergies Home Medications ?Medication ?Instructions ?Recorded ?Confirmed ?Last Taken ?Type cetirizine 10 mg tablet (24Hour 10 mg PO DAILY PRN all ergies 02/24/24 08/23/24 08/23/24 History Allergy) ibuprofen 200 mg capsule 200 mg PO Q6H PRN Pain 02/2308/23/24 Unknown History Allergies Allergy/AdvReac Type Severity Reaction Status Date / Time No Known Allergies Allergy Verified 02/24/24 09:42 PFSH Acute 2 PFSH: Medical History (Updated 08/23/24 @ 15:49 by Jigar Metzger MD) No significant active problems Surgical History No significant past surgical history Family History Father Diabetes Heart disease Grandfather Colon cancer Other Cancer Social History (Updated 08/23/24 @ 15:48 by Jigar Metzger MD) Smoking and tobacco/nicotine status: former use of tobacco/nicotine Quit status (tobacco/nicotine): has quit using Year quit tobacco: 1988 Former quit date comment: Was a pack per day for 20 years prior to that Second hand smoke exposure: No Alcohol intake: former Year of sobriety/quit date alcohol: 1984 Former alcohol use details: Got drunk with friends on occasion prior to that Substance/Drug Use: former Date of last use: 1979 Former substance use details: Some weed and acid Additional social history: Patient wants full code as discussed with Jigar Metzger MD on 08/23/2024 Adopted: No Caregiver/support person: No Lives independently: Yes Marital status: Marital status details: Faustina who is a retired RN that worked here on 1st and 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 He has a fit athletic build appears slightly younger than his age Neck no carotid bruits Oropharynx Mallampati 1 CV regular rate and rhythm no loud murmur Lungs clear to auscultation bilaterally Abdomen positive bowel tones soft nontender Calves no tenderness cords pretibial edema Dorsal pedal pulses mildly diminished Posterior tibial pulses 2+ Radial pulses 2+ right 1+ left Skin warm and dry Data 08/23/24 11:59 08/23/24 11:59 A&P Assessment and plan 1. Atrial fibrillation with rapid ventricular response: Patient had heart rate of 150s when he came in. Will check cardiac enzymes. We discussed potential causes for atrial fibrillation including atrial enlargements from chronic hypertension, pulmonary hypertension related to sleep apnea, aging electrical system and ischemia. For step for evaluating this will be an echocardiogram. He has one scheduled for September 07 but I encouraged him to have 1 here so that we we will have the data to suggest further testing such as sleep study if needed 2. Chest pain: Cardiac enzymes will be done x 3 sets 0, 2 and 6-hour 3. Sleep apnea-like behavior: states he snores heavily then pauses of breathing but not for 10 seconds. Recommend that he talk to his primary care physician about sleep study PDMP PDMP Reviewed: Not Reviewed Attestations 2 Medical Necessity Statement*: Patient will be admitted to hospital for observation and expected to spend 1 midnight Coding Level of Care Code 49871 Diagnoses Atrial fibrillation with rapid ventricular response I48.91 Chest pain R07.9 Sleep apnea-like behavior G47.39 Time Spent (min) 70
[2024-08-23] MEDS: dilTIAZem ER (24HR) 120 mg Capsule PO (16:41)
--- NOTE | 2024-08-23 16:57 | ECG_ITS ---
[facility]: 2024-08-23 Pat Name: Dakotah Mcgee Department: Room: 105 Gender: Male Forms Analyst: : 1960 Requested By: Jigar Glasgow Order Number: [id number] Joy MD: EVETTE HAWK Measurements Intervals [place] Rate: 78 P: 53 ID: [id number] QRS: 74 QRSD: 92 T: 28 QT: 340 QTc: 388 Interpretive Statements SINUS RHYTHM Compared to ECG 08/23/2024 15:44:19 Sinus arrhythmia no longer present Intraventricular conduction delay no longer present Electronically Signed On 08-25-2024 16:12:04 CDT by EVETTE HAWK [email or web address]
[2024-08-23 18:58] LABS: Troponin 5 6HR < 6.0 ng/L (0-15); Troponin 5 6HR Delta 0 ng/L (0-12)
--- NOTE | 2024-08-23 19:12 | PC.NURSE ---
patient refused echo due to insurance reasons. He stated that he had already had an echo preapproved for September 07 and they would not approve another one until Dr Metzger did a prior auth call. Nurse reported this to Dr Metzger who whote that it was ok for the patient to wait to have it. Patient informed and verbalized understanding.
[2024-08-24 00:36] VITALS: BP 119/79; PULSE 58; RESP 18; O2SAT 94
[2024-08-24 03:41] LABS: Cholesterol 207 mg/dL (0-200); HDL Cholesterol 40 mg/dL (60-100); Thyroid Stimulating Hormone 0.74 uIU/mL (0.27-4.20); Triglycerides 292 mg/dL (0-150)
[2024-08-24 04:00] VITALS: BP 124/81; PULSE 80; RESP 23; TEMP 37; O2SAT 94
--- OUTSIDE RECORDS SUMMARY | 2024-08-24 05:58 | XMS_ITS | Encounter Summary ---
Author Organization [facility] Address [address] [place] [address] Care Team Providers Care Constitutional Law Professor Name Role Phone Unavailable Primary Care Provider Unavailabl e Reason for Visit * Reason Onset Date Comments Results 07/04/2024 Encounter Details Date Type Department Care Team (Late st Contact Info) Description 07/04/2024 Results Follow-Up [facility] [address] [facility] [address] [place] [phone] Raghavendra Santiago MD [address] [facility] [address] [place] [phone] PET HEART PERF R&S W CT MULTI Social History Tobacco Use Types Packs/Day Years Used Date Smoking Tobacco: Former Cigarettes Q uit: 08/14/1994 Smokeless Tobacco: Former Quit: 08/14/1994 Alcohol Use Standard Drinks/Week Comments No 0 (1 standard drink = 0.6 oz pur e alcohol) Sex and Gender Information Value Date Recorded Sex Assigned at Not on file 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 * Telephone Encounter - Fanw Cheng - 07/05/2024 11:52 AM CDT I [...] evidence of significant underlying CAD, no prior VT or heart damage. Await echo results. * Result Encounter Note - Raghavendra Santiago MD - 07/04/2024 6:53 AM CDT Cardiac nuclear PET/CT is normal No ischemia. Normal myocardial blood flow reserve Normal LV function, EF 68% Calcium score is 137 This scan shows no evidence of significant underlying CAD, no prior VT or heart damage. Await echo results. documented in this encounter Plan of Treatment Upcoming Encounters Date Type Department Care Team (Late st Contact Info) Description 09/07/2024 9:30 AM CDT Appointment [facility] Echo [address] [place] [address] Raghavendra Santiago MD [address] [address] [place] [address] documented as of this encounter Visit Diagnoses Not on filedocumented in this encounter
--- OUTSIDE RECORDS SUMMARY | 2024-08-24 05:58 | XMS_ITS | Clinical Summary ---
Author Organization [facility] Address [address] [facility] Attn: Epic Prelude ADT EKV POWER [id number] Care Team Providers Care Contact Lens Manufacturer Name Role Phone Unavailable Primary Care Provider Unavailabl e Allergies No known active allergies Medications cetirizine (ZyrTEC) 10 mg tablet Take 10 mg by mouth daily. Active ibuprofen (MOTRIN) 200 mg tablet Take 200 mg by mouth every 6 hours as needed for Pain, Mild. Active Active Problems No known active problems Encounters Date Type Department Care Team Description 07/04/2024 Results Follow-Up [address] [place] [phone] Raghavendra Santiago MD PET HEART PERF R&S W CT MULTI 07/03/2024 8:40 AM CDT - 07/03/2024 11:59 PM CDT Hospital Encounter [facility] Nuclear Medicine [address] [place] [phone] Raghavendra Santiago MD Discharge Disposition: Home or Self Care 07/03/2024 8:35 AM CDT - 07/03/2024 11:59 PM CDT Hospital Encounter [facility] Nuclear Medicine [address] [place] [phone] Raghavendra Santiago MD Discharge Disposition: Home or Self Care 07/03/2024 8:00 AM CDT - 07/03/2024 11:59 PM CDT Hospital Encounter [facility] Nuclear Medicine [address] [place] [phone] Raghavendra Santiago MD Discharge Disposition: Home or Self Care 07/03/2024 7:59 AM CDT - 07/03/2024 11:59 PM CDT Hospital Encounter [address] [phone] Raghavendra Santiago MD Discharge Disposition: Home or Self Care 06/28/[address] [phone] Hamida Garcia RN Pet scan instructions 05/31/2024 1:15 PM CDT Office Visit [address] [place] [phone] Raghavendra Santiago MD Chest pain, unspecified type (Primary Dx); Non-sustained ventricular tachycardia (CMS/HCC); Supraventricular tachycardia 05/31/2024 Orders Only [address] [place] [phone] Raghavendra Santiago MD Chest pain, unspecified type [...] on file 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 [facility] [place] [address] Raghavendra Santiago MD [address] [facility] [address] [place] [phone] Health Maintenance Due Date Last Done Comments DTAP/TDAP/TD VACCINES (1 - Tdap) 01/29/1979 FIT-DNA Q 3 years 01/29/2005 FIT/FOBT Q 1 year 01/29/2005 Flex Sig/CT Colonography Q 5 years 01/29/2005 ZOSTER VACCINE (1 of 2) 01/29/2010 COLORECTAL SCREENING 08/17/2018 08/17/2013, 08/18/19 14 Colorectal Cancer Screening 08/17/2018 INFLUENZA VACCINE (#1) 2024 RSV VACCINE (60+ [...] Raghavendra Santiago MD CT ORDERABLES Final Result INTERFACE SYSTEM Refer to clinic/hospital department * CT CARDIAC CHEST INTERPRETATION (07/03/2024 8:49 AM CDT) Anatomical Region Laterality Modality Chest Nuclear Medicine 07/03/2024 8:49 AM CDT Impressions 07/03/2024 9:06 AM CDT [...] Final Result from Last 3 Months Insurance [facility] CHOICE [id number] [place] [address]
--- OUTSIDE RECORDS SUMMARY | 2024-08-24 05:58 | XMS_ITS | Encounter Summary ---
Author Organization [facility] Address 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 Paola Villegas [facility] Cardiology [facility] documented in this encounter Plan of Treatment Upcoming Encounters Date Type Department Care Team (Late st Contact Info) Description 09/07/2024 9:30 AM CDT Appointment [facility] Echo [address] [place] [phone] Raghavendra Santiago MD [address] [facility] [address] [place] [address] documented as of this encounter Visit Diagnoses Not on filedocumented in this encounter
[2024-08-24 08:00] VITALS: BP 119/78; PULSE 64; RESP 18; TEMP 36.4; O2SAT 94
--- NOTE | 2024-08-24 08:38 | P.DS_ITS ---
Discharge Providers Date of Admission: 08/23/24 15:37 Date of Discharge: August 24, 2024 Attending Provider at Admission: Jigar Metzger MD Attending Provider at Discharge: Jigar Metzger MD Primary Care Provider: José Black DO Diagnoses at Discharge Discharge Diagnosis 1. Atrial fibrillation with rapid ventricular response: Details from hospital stay: Heart rate 150s with discomfort in the emergency department controlled with diltiazem drip and is converted spontaneously. Switched over till diltiazem CD 120 mg daily with mild bradycardia into the 50s. He will take this every other day if heart rate below 60 blood pressure improved from systolic 137-119 2. Chest pain: Details from hospital stay: Negative cardiac enzymes follow-up with construction equipment mechanic that you are already seeing 3. Sleep apnea-like behavior: Details from hospital stay: Please get tested for sleep apnea 4. Hyperlipidemia: Details from hospital stay: Mild but with LDL of 109 I started rosuvastatin 10 mg and recommended a low-fat diet. I see no A1c in his lab history but blood sugars here were 85 on BMP Reason for Visit Reason for Visit: high HR Brief History: Dakotah Mcgee is a 64 year old male comes in with chest palpitations and chest pain 3/10 resolved after heart rate was controlled. He states that he did not really have chest pain by the time he got to the hospital. Patient was given diltiazem 10 mg in the emergency department for A-fib with heart rate of 150. He was started on a drip. He states that he had a similar episode with palpitations hypertension evaluated by his RN Faustina. She also thinks he stops breathing for a few seconds at a time and snores heavy. It is enough to make her sleep in the other room to get sleep. As a result the patient saw Dr. Santiago construction equipment mechanic in [place] and had a Holter monitor which showed nonsustained V. tach runs and he had a PET scan of his heart. He is scheduled to have an echocardiogram on September 07 Patient has never had an AL but he does have positive family history for coronary artery disease. He states he does not have diabetes nor hyperlipidemia. Quit smoking 35 years ago after pack per day for 20 years Family history dad of coronary artery disease with an AL at age 82 but started heart disease at age 65 mom has coronary artery disease and is age 84 and living brother is okay paternal uncle has irregular heartbeat possibly A-fib patient has no sisters he has 2 kids that are okay Hospital Course Hospital Course Patient did not have any more A-fib. He did have heart rates down to the 50s on diltiazem CD120 mg. Patient declined to do echocardiogram because he has 1 already ordered outpatient on September 07. Cardiac enzymes were negative troponins x 3 all less than 6 which is the lowest threshold. We discussed the possibility of sleep apnea or hypertension with atrial enlargement and recommended treatment for blood pressure and sleep apnea if present. Additionally cholesterol was mildly elevated with LDL 109 so low-fat cardiac diet was recommended baby aspirin and rosuvastatin 10 mg daily. Patient had chest discomfort with his presentation heart rate 150 but cardiac enzymes were negative. There is self reported nonsustained V. tach per he and his on recent Holter monitor and he is following up with cardiology outpatient Dr. Santiago. Physical Exam Narrative: General well-developed well-nourished male in no acute cardiopulmonary stress CV regular rate and rhythm Lungs clear to auscultation bilaterally Dorsal pedal pulses diminished but posterior tibial pulses strong Discharge Data Studies Completed and Pending Completed Studies During Hospitalization Category Date Time Status XR chest 1V portable [id number] Stat Exams 08/23/24 11:50 Completed Radiology Impressions Chest X-Ray 08/23/24 11:50 IMPRESSION: No acute chest abnormality. Laboratory Results WBC 5.60 10^3/uL (3.29-11.43) 08/23/24 11:59 RBC 5.46 10^6/uL (3.85-5.65) 08/23/24 11:59 Hgb 16.30 g/dL (11.27-16.99) 08/23/24 11:59 Hct 49.7 % (37-53) 08/23/24 11:59 MCV 91.0 fl (82-101) 08/23/24 11:59 MCH 29.9 pg (27-33) 08/23/24 11:59 MCHC 32.8 g/dL (30-55) 08/23/24 11:59 RDW 12.6 % (12.1-15.1) 08/23/24 11:59 Plt Count 240 10^3/cmm (157-399) 08/23/24 11:59 MPV 10.0 fL (7.4-10.4) 08/23/24 11:59 Neut % (Auto) 46.9 % 08/23/24 11:59 Lymph % (Auto) 33.4 % 08/23/24 11:59 [place] % (Auto) 14.5 % 08/23/24 11:59 Eos % (Auto) 3.4 % 08/23/24 11:59 Baso % (Auto) 0.9 % 08/23/24 11:59 Neut # (Auto) 2.63 10^3/uL (1.8-7.7) 08/23/24 11:59 Lymph # (Auto) 1.9 10^3/uL (0.8-4.8) 08/23/24 11:59 [place] # (Auto) 0.8 10^3/uL (0.2-0.9) 08/23/24 11:59 Eos # (Auto) 0.2 10^3/uL (0.0-0.8) 08/23/24 11:59 Baso # (Auto) 0.1 10^3/uL (0.0-0.1) 08/23/24 11:59 Nucleated RBC % (auto) 0 % 08/23/24 11:59 Nucleated RBCs # 0.0 /100WBC 08/23/24 11:59 Sodium 138 mmol/L (136-145) 08/23/24 11:59 Potassium 4.5 mmol/L (3.5-5.1) 08/23/24 11:59 Chloride 103 mmol/L (98-107) 08/23/24 11:59 Carbon Dioxide 23 mmol/L (22-29) 08/23/24 11:59 Anion Gap 16.5 (5-19) 08/23/24 11:59 BUN 20 mg/dL (8-23) 08/23/24 11:59 Creatinine 1.0 mg/dL (0.7-1.2) 08/23/24 11:59 GFR Calculation 75.2 mL/min (90-130) L 08/23/24 11:59 Glucose 85 mg/dL (65-115) 08/23/24 11:59 Calculated Osmolality 288 mOsm/kg (285-295) 08/23/24 11:59 Calcium 9.6 mg/dL (8.5-10.5) 08/23/24 11:59 Magnesium 2.3 mg/dL (1.7-2.3) 08/23/24 11:59 Total Bilirubin 0.4 mg/dL (0.15-1.2) 08/23/24 11:59 AST 24 U/L (0-40) 08/23/24 11:59 ALT 28 U/L (0-41) 08/23/24 11:59 Alkaline Phosphatase 107 U/L (40-130) 08/23/24 11:59 Troponin T Baseline < 6 ng/L (0-15) 08/23/24 11:59 Troponin T 120 Minute < 6.0 ng/L (0-15) 08/23/24 13:55 Delta Troponin T 0 ABS# (0-10) 08/23/24 13:55 Troponin T Hi Sens 6Hr < 6.0 ng/L (0-15) 08/23/24 18:16 Troponin T Hi Sens 6Hr Delta 0 ng/L (0-12) 08/23/24 18:16 Total Protein 7.3 g/dL (6.6-8.7) 08/23/24 11:59 Albumin 4.4 g/dL (3.5-5.2) 08/23/24 11:59 Globulin 2.9 g/dL (1.3-4.6) 08/23/24 11:59 Triglycerides 292 mg/dL (0-150) H 08/23/24 18:16 Cholesterol 207 mg/dL (0-200) H 08/23/24 18:16 LDL Cholesterol, Calc 109 mg/dL (50-129) 08/23/24 18:16 HDL Cholesterol 40 mg/dL (60-100) L 08/23/24 18:16 LDL/HDL Ratio 2.73 RATIO (0.00-3.22) 08/23/24 18:16 Cholesterol/HDL Ratio 5.18 mg/dL (1.0-5.00) H 08/23/24 18:16 TSH 0.74 uIU/mL (0.27-4.20) 08/23/24 18:16 Urine Color Yellow (Yellow) 08/23/24 12:24 Urine Appearance Clear (CLEAR) 08/23/24 12:24 Urine pH 6.5 (5-7) 08/23/24 12:24 Ur Specific [place] 1.004 (1.005-1.030) L 08/23/24 12:24 Urine Protein Negative (Negative) 08/23/24 12:24 Urine Glucose (UA) Negative (Normal) 08/23/24 12:24 Urine Ketones Negative (Negative) 08/23/24 12:24 Urine Blood Negative (Negative) 08/23/24 12:24 Urine Nitrate Negative (Negative) 08/23/24 12:24 Urine Bilirubin Negative (Negative) 08/23/24 12:24 Urine Urobilinogen 0.2 mg/dL (Negative) 08/23/24 12:24 Ur Leukocyte Esterase Negative (Negative) 08/23/24 12:24 Urine RBC 0-2 /hpf (0-2) 08/23/24 12:24 Urine WBC 0-5 /hpf (0-5) 08/23/24 12:24 Ur Squamous Epith Cells 0-5 /hpf (0-5) 08/23/24 12:24 Amorphous Sediment Not Reportable 08/23/24 12:24 Urine Bacteria None seen /hpf (NONE) 08/23/24 12:24 Hyaline Casts 0-4 /lpf H 08/23/24 12:24 Urine Opiates Screen Negative ng/mL (Negative) 08/23/24 12:24 Ur Barbiturates Screen Negative ng/mL (Negative) 08/23/24 12:24 Ur Phencyclidine Scrn Negative ng/mL (Negative) 08/23/24 12:24 Ur Amphetamines Screen Negative ng/mL (Negative) 08/23/24 12:24 U Benzodiazepines Scrn Negative ng/mL (Negative) 08/23/24 12:24 Urine Cocaine Screen Negative ng/mL (Negative) 08/23/24 12:24 U Marijuana (THC) Screen Negative ng/mL (Negative) 08/23/24 12:24 Vitals Last Vital Signs Temp 97.6 F 08/24/24 08:00 Pulse 64 08/24/24 08:00 Resp 18 08/24/24 08:00 BP 119/78 08/24/24 08:00 Pulse Ox 94 08/24/24 08:00 O2 Del Method Room Air 08/24/24 08:00 Discharge Plan Discharge Patient Disposition: Home Condition: Stable Prescriptions: New aspirin 81 mg Tablet,Delayed Release (Dr/Ec) 81 mg PO DAILY Qty: 100 0RF diltiazem HCl 120 mg Capsule,Extended Release 24hr 120 mg PO DAILY Qty: 60 0RF rosuvastatin 10 mg tablet 10 mg PO DAILY Qty: 60 0RF Continued cetirizine [24Hour Allergy] 10 mg tablet 10 mg PO DAILY PRN (Reason: allergies) ibuprofen 200 mg capsule 200 mg PO Q6H PRN (Reason: Pain) Referrals: José Black DO [Primary Care Provider, Family Practice] - 2 weeks Discharge Diet: Cardiac Discharge Activity: Resume usual activity Patient Instructions: Patient Portal & Sacha Instructions Activity Restrictions/Additional Instructions: Take your blood pressure and pulse each day before taking diltiazem. If your blood pressure is below 110 systolic or heart rate is below 60 skip it. Your LDL was 109 so I started you on rosuvastatin. You should get your cholesterol rechecked in 3 months. Take enteric-coated aspirin 81 mg daily until your workup is finished with your construction equipment mechanic. You should have your echocardiogram done with your construction equipment mechanic as planned on September 07. Please get tested for sleep apnea Discharge Attestations Time Spent in Discharge Care*: greater than 30 min Quality Metrics Clinical Quality Measures [ No reported AMI, CVA or VTE this stay] Coding Level of Care Code Acute Code for Chg Fwd Diagnoses Atrial fibrillation with rapid ventricular response I48.91 Chest pain R07.9 Sleep apnea-like behavior G47.39 Hyperlipidemia E78.5
[2024-08-24] MEDS: dilTIAZem ER (24HR) 120 mg Capsule PO (08:53)
[2024-08-24 10:18] VITALS: BP 115/78; PULSE 75; RESP 18; TEMP 37; O2SAT 98
== END 2024-08-24 10:21 | disposition home or self-care (01) ==
LOC: ER 13:19 → CSU 13:59
PROVIDERS: Admitting Provider Internal Medicine; Emergency Provider Emergency Medicine; Family Provider Family Medicine; PCP Family Medicine; Visit Provider Internal Medicine
DX: I48.91 Unspecified atrial fibrillation (principal); G47.39 Other sleep apnea; E78.5 Hyperlipidemia, unspecified; Z82.49 Family history of ischemic heart disease and other diseases of the circulatory system; Z87.891 Personal history of nicotine dependence
CPT/HCPCS: 36415; 71045; 80053; 80061; 80306; 81001; 83735; 84443; 84484; 85025; 93005; 96365; 96366; 96372; 96375; 99291; 99292; G0378; J1650; J3490; J9999

== ENCOUNTER 2024-11-26 13:05 | Outpatient (CLI) | payer OTHER, SELFPAY | END 2024-11-26 13:06 | disposition home or self-care (01) | LOC: SLEEP 13:12 | PROVIDERS: Family Provider Family Medicine; PCP Family Medicine; Referring Provider Family Medicine; Visit Provider Internal Medicine Pulmonary Disease | DX: G47.33 Obstructive sleep apnea (adult) (pediatric) (principal) | CPT/HCPCS: G0399 ==